=== PATIENT | male | born 1995 | race Caucasian/White ===

== ENCOUNTER 2016-06-05 14:13 | Emergency (ER) | payer OTHER ==
[~2016-06-05] VITALS: Ht 175.3 cm; Wt 68.0 kg
[2016-06-05 16:01] VITALS: BP 141/82
== END 2016-06-05 16:01 | disposition home or self-care (01) ==
LOC: ED 14:13
DX: M25.061 Hemarthrosis, right knee (principal); Z88.5 Allergy status to narcotic agent
CPT/HCPCS: J2001; J3010

== ENCOUNTER 2017-01-01 11:26 | Emergency (ER) | payer OTHER ==
[~2017-01-01] VITALS: Ht 177.8 cm; Wt 69.5 kg
[2017-01-01 12:50] VITALS: BP 135/91
== END 2017-01-01 12:50 | disposition home or self-care (01) ==
LOC: ED 11:26
DX: J20.9 Acute bronchitis, unspecified (principal)
CPT/HCPCS: J7613

== ENCOUNTER 2018-03-29 10:02 | Emergency (ER) | payer OTHER ==
[~2018-03-29] VITALS: Ht 172.7 cm; Wt 76.7 kg
[2018-03-29 10:07] VITALS: Ht 172.7 cm; Wt 76.7 kg
[2018-03-29 10:41] VITALS: BP 136/99
== END 2018-03-29 10:41 | disposition home or self-care (01) ==
LOC: ED 10:02
DX: J40 Bronchitis, not specified as acute or chronic (principal); J30.9 Allergic rhinitis, unspecified
CPT/HCPCS: J1100

== ENCOUNTER 2018-07-03 00:28 | Emergency (ER) | payer OTHER ==
[~2018-07-03] VITALS: Ht 177.8 cm; Wt 77.8 kg
[2018-07-03 00:33] VITALS: BP 157/99; Ht 177.8 cm; Wt 77.8 kg
== END 2018-07-03 01:08 | disposition home or self-care (01) ==
LOC: ED 00:28
DX: K04.7 Periapical abscess without sinus (principal); K02.9 Dental caries, unspecified

== ENCOUNTER 2018-07-04 06:43 | Emergency (ER) | payer OTHER ==
[~2018-07-04] VITALS: Ht 180.3 cm; Wt 77.6 kg
[2018-07-04 06:49] VITALS: Ht 180.3 cm; Wt 77.6 kg
[2018-07-04 07:34] VITALS: BP 137/86
== END 2018-07-04 07:34 | disposition home or self-care (01) ==
LOC: ED 06:43
DX: K08.89 Other specified disorders of teeth and supporting structures (principal)

== ENCOUNTER 2018-08-18 20:19 | Emergency (ER) | payer OTHER ==
[~2018-08-18] VITALS: Ht 175.3 cm; Wt 71.7 kg
[2018-08-18 21:00] VITALS: Ht 175.3 cm; Wt 71.7 kg
[2018-08-18 21:19] VITALS: BP 144/91
== END 2018-08-18 21:00 | disposition home or self-care (01) ==
LOC: ED 20:19
DX: K02.9 Dental caries, unspecified (principal)

== ENCOUNTER 2018-11-18 20:11 | Emergency (ER) | payer OTHER ==
[~2018-11-18] VITALS: Ht 175.3 cm; Wt 72.6 kg
[2018-11-18 22:29] VITALS: BP 121/79
== END 2018-11-18 22:29 | disposition home or self-care (01) ==
LOC: ED 20:11
DX: K08.89 Other specified disorders of teeth and supporting structures (principal)
CPT/HCPCS: J1885